=== PATIENT | female | born 1975 | race Caucasian/White ===

== ENCOUNTER 2019-01-28 14:38 | Inpatient (IN) | payer MEDICARE, MEDICAID ==
[2019-01-28] MEDS ORDERED: Sodium Chloride 0.9% 10 ML Syringe FLUSH PRN (15:53)
[2019-01-28] MEDS ORDERED: Iopamidol 612 MG/ML 150 ML Bottle IV SCH (16:00)
[2019-01-28] MEDS ORDERED: fentaNYL 100 MCG/2 ML SDV IVPUSH ONE (16:04)
[2019-01-28] MEDS ORDERED: LORazepam 2 MG/ML SDV IVPUSH ONE (16:05)
[2019-01-28] MEDS ORDERED: Ondansetron 4 MG/2 ML SDV IVPUSH ONE ×2 (16:09→18:40)
[2019-01-28] MEDS ORDERED: Sodium Chloride 0.9% 1,000 ML IV SCH (16:15)
--- NOTE | 2019-01-28 16:26 | EDM.PDOC ---
<Payal Cheung - Last Filed: 01/28/19 18:01> ED HPI GENERAL MEDICAL PROBLEM - General Chief Complaint: Abdominal Pain Stated Complaint: RT ABD PAIN Time Seen by Provider: 01/28/19 15:12 Source of Information: Reports: Patient History Limitations: Reports: No Limitations - History of Present Illness INITIAL COMMENTS - FREE TEXT/NARRATIVE: Siva Jiang is a 43 year old female who presents with concerns of nausea, vomiting and abdominal pain for 4 days. She states she has had diarrhea and constipation on and off for the last couple of weeks. She also reports bright red blood on the toilet tissue and in her stool for the past 2 months. She reports starting a liquid diet 9 days ago. She states eating now increases her pain. Her last bowel movement was 3 hours ago, which was diarrhea consistency. She notes at times her stool is yellow and other times it appears brown. Past surgical history is appendectomy and cholecystectomy. LMP was 3/2. Notes the pain waxes and wanes and it a stabbing pain. States pain is mainly located in right lower quadrant. Denies fevers, dysuria, and polyuria. Right Lower Abdominal Pain Score (Numeric/FACES): 8 - Related Data Allergies Allergy/AdvReac Type Severity Reaction Status Date / Time amoxicillin [From Augmentin] Allergy Other Verified 01/28/19 16:32 aripiprazole [From Abilify] Allergy Other Verified 01/28/19 16:32 bupropion [From Wellbutrin] Allergy Other Verified 01/28/19 16:32 clavulanic acid Allergy Other Verified 01/28/19 16:32 [From Augmentin] divalproex sodium Allergy Other Verified 01/28/19 16:32 [From Depakote] ketorolac [From Toradol] Allergy Other Verified 01/28/19 16:32 lamotrigine [From Lamictal] Allergy Other Verified 01/28/19 16:32 latex Allergy Other Verified 01/28/19 16:32 penicillin G Allergy Other Verified 01/28/19 16:32 phenytoin [From Dilantin] Allergy Other Verified 01/28/19 16:32 Home Meds: Home Meds Docusate Sodium [Colace] 50 mg PO DAILY 01/28/19 [History] Esomeprazole Magnesium [Nexium] 40 mg PO BID 01/28/19 [History] Gabapentin [Neurontin] 800 mg PO QID 01/28/19 [History] Olopatadine HCl 1 drop EYEBOTH DAILY 01/28/19 [History] PARoxetine HCl [Paroxetine HCl] 20 mg PO DAILY 01/28/19 [History] cloNIDine [Catapres] 0.2 mg PO ASDIRECTED 01/28/19 [History] diazePAM [Valium] 10 mg PO ASDIRECTED PRN 01/28/19 [History] traMADol HCl [Tramadol HCl] 50 mg PO ASDIRECTED PRN 01/28/19 [History] Past Medical History HEENT History: Reports: Impaired Vision Gastrointestinal History: Reports: Chronic Constipation, Chronic Diarrhea, GERD Genitourinary History: Reports: Renal Calculus 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 SPECIALIST History: Reports: Endometriosis, Musculoskeletal History: Reports: Back Pain, Chronic, Fibromyalgia Neurological History: Reports: Concussion, Head Trauma, Migraines, Seizure, Vertigo Psychiatric History: Reports: ADHD, Addiction, Anxiety, Bipolar, Depression, Panic Attack, Psych Hospitalization(s), PTSD, Suicide Attempt Endocrine/Metabolic History: Reports: Obesity/BMI 30+ Hematologic History: Reports: Iron Deficiency - Infectious Disease History Infectious Disease History: Reports: Shingles - Past Surgical History Head Surgeries/Procedures: Reports: None HEENT Surgical History: Reports: Adenoidectomy, Tonsillectomy GI Surgical History: Reports: Appendectomy, Cholecystectomy Female Surgical History: Reports: None Endocrine Surgical History: Reports: None Neurological Surgical History: Reports: None Musculoskeletal Surgical History: Reports: None Dermatological Surgical History: Reports: None Social & Family History - Tobacco Use Smoking Status *Q: Current Every Day Smoker Years of Tobacco use: 22 Packs/Tins Daily: 0.5 Used Tobacco, but Quit: No - Caffeine Use Caffeine Use: Reports: Coffee, Soda, Tea - Recreational Drug Use Recreational Drug Use: Yes Drug Use in Last 12 Months: Yes Recreational Drug Type: Reports: Marijuana/Hashish Recreational Drug Use Frequency: Monthly ED ROS GENERAL - Review of Systems Review Of Systems: ROS reveals no pertinent complaints other than HPI. ED EXAM, GI/ABD - Physical Exam Exam: See Below Exam Limited By: No Limitations General Appearance: Alert, No Apparent Distress, Anxious (Crying throughout exam , histrionic ), Moderate Distress Ears: Normal External Exam Nose: Normal Inspection, Normal Mucosa Throat/Mouth: Normal Inspection, Normal Lips, Normal Oropharynx Head: Atraumatic, Normocephalic Neck: Normal Inspection, Supple, Non-Tender Respiratory/Chest: No Respiratory Distress, Lungs Clear, Normal Breath Sounds Cardiovascular: Regular Rate, Rhythm GI/Abdominal Exam: Normal Bowel Sounds, Soft, No Mass, Tender (Severly tender located in epigastric region, RUQ and RLQ. Tenderness upon palpation of LLQ as well.) Extremities: Normal Inspection, Non-Tender, No Pedal Edema Neurological: Alert, Oriented Psychiatric: Anxious Skin Exam: Warm, Intact, Normal Color, No Rash Course - Vital Signs Last Recorded V/S: Last Vital Signs Temp 96.7 F 01/28/19 17:10 Pulse 71 01/28/19 18:24 Resp 18 01/28/19 15:02 BP 110/60 01/28/19 18:24 Pulse Ox 100 01/28/19 18:24 - Orders/Labs/Meds Orders: Active Orders 24 hr Category Date Time Status DRUG SCREEN, URINE [URCHEM] Stat Lab 01/28/19 18:23 Ordered Iopamidol [Isovue-300 (61%)] Med 01/28/19 16:00 Active 150 ml IV . DIRECTED Sodium Chloride 0.9% [Normal Saline] 1,000 ml Med 01/28/19 16:15 Active IV ASDIRECTED Sodium Chloride 0.9% [Saline Flush] Med 01/28/19 15:53 Active 10 ml FLUSH ONETIME PRN Medication Orders Sodium Chloride (Normal Saline) 1,000 mls @ 999 mls/hr IV ASDIRECTED SANGEETHA Last Admin: 01/28/19 17:11 Dose: 999 mls/hr Iopamidol (Isovue-300 (61%)) 150 ml IV . DIRECTED SANGEETHA Sodium Chloride (Saline Flush) 10 ml FLUSH ONETIME PRN PRN Reason: PER RADIOLOGY PROTOCOL Labs: Laboratory Tests 01/28/19 01/28/19 01/28/19 Range/Units 15:55 15:55 16:14 WBC 11.3 H (4.5-11.0) K/uL RBC 4.03 (3.30-5.50) M/uL Hgb 11.8 L (12.0-15.0) g/dL Hct 37.0 (36.0-48.0) % MCV 92 (80-98) fL MCH 29 (27-31) pg MCHC 32 (32-36) % Plt Count 262 (150-400) K/uL Neut % (Auto) 60 (36-66) % Lymph % (Auto) 30 (24-44) % Dade % (Auto) 7 H (2-6) % Eos % (Auto) 3 (2-4) % Baso % (Auto) 1 (0-1) % Sodium 139 L (140-148) mmol/L Potassium 4.1 (3.6-5.2) mmol/L Chloride 103 (100-108) mmol/L Carbon Dioxide 28 (21-32) mmol/L Anion Gap 12.1 (5.0-14.0) mmol/L BUN 10 (7-18) mg/dL Creatinine 1.0 (0.6-1.0) mg/dL Est Cr Clr Drug Dosing 65.95 mL/min Estimated GFR (MDRD) > 60 (>60) Glucose 94 (74-106) mg/dL Calcium 8.6 (8.5-10.1) mg/dL Total Bilirubin 0.2 (0.2-1.0) mg/dL AST 25 (15-37) U/L ALT 27 (12-78) U/L Alkaline Phosphatase 63 (46-116) U/L Total Protein 7.0 (6.4-8.2) g/dL Albumin 3.5 (3.4-5.0) g/dL Globulin 3.5 (2.3-3.5) g/dL Albumin/Globulin Ratio 1.0 L (1.2-2.2) Lipase 131 (73-393) U/L Urine Color Yellow Urine Appearance Clear Urine pH 6.0 (4.5-8.0) Ur Specific Friendship 1.005 L (1.008-1.030) Urine Protein Negative (NEGATIVE) mg/dL Urine Glucose (UA) Negative (NEGATIVE) mg/dL Urine Ketones Negative (NEGATIVE) mg/dL Urine Occult Blood Negative (NEGATIVE) Urine Nitrite Negative (NEGATIVE) Urine Bilirubin Negative (NEGATIVE) Urine Urobilinogen Normal (NORMAL) mg/dL Ur Leukocyte Esterase Negative (NEGATIVE) Urine RBC 0-5 (0-5) Urine WBC 0-5 (0-5) Ur Epithelial Cells Rare Amorphous Sediment Few Urine Bacteria Not seen Urine Mucus Not seen Urine HCG, Qual 01/28/19 Range/Units 16:14 WBC (4.5-11.0) K/uL RBC (3.30-5.50) M/uL Hgb (12.0-15.0) g/dL Hct (36.0-48.0) % MCV (80-98) fL MCH (27-31) pg MCHC (32-36) % Plt Count (150-400) K/uL Neut % (Auto) (36-66) % Lymph % (Auto) (24-44) % Dade % (Auto) (2-6) % Eos % (Auto) (2-4) % Baso % (Auto) (0-1) % Sodium (140-148) mmol/L Potassium (3.6-5.2) mmol/L Chloride (100-108) mmol/L Carbon Dioxide (21-32) mmol/L Anion Gap (5.0-14.0) mmol/L BUN (7-18) mg/dL Creatinine (0.6-1.0) mg/dL Est Cr Clr Drug Dosing mL/min Estimated GFR (MDRD) (>60) Glucose (74-106) mg/dL Calcium (8.5-10.1) mg/dL Total Bilirubin (0.2-1.0) mg/dL AST (15-37) U/L ALT (12-78) U/L Alkaline Phosphatase (46-116) U/L Total Protein (6.4-8.2) g/dL Albumin (3.4-5.0) g/dL Globulin (2.3-3.5) g/dL Albumin/Globulin Ratio (1.2-2.2) Lipase (73-393) U/L Urine Color Urine Appearance Urine pH (4.5-8.0) Ur Specific Friendship (1.008-1.030) Urine Protein (NEGATIVE) mg/dL Urine Glucose (UA) (NEGATIVE) mg/dL Urine Ketones (NEGATIVE) mg/dL Urine Occult Blood (NEGATIVE) Urine Nitrite (NEGATIVE) Urine Bilirubin (NEGATIVE) Urine Urobilinogen (NORMAL) mg/dL Ur Leukocyte Esterase (NEGATIVE) Urine RBC (0-5) Urine WBC (0-5) Ur Epithelial Cells Amorphous Sediment Urine Bacteria Urine Mucus Urine HCG, Qual Negative Meds: Medications Generic Name Dose Route Start Last Admin Trade Name Freq PRN Reason Stop Dose Admin Sodium Chloride 1,000 mls @ 999 mls/hr 01/28/19 16:15 01/28/19 17:11 Normal Saline IV 999 mls/hr ASDIRECTED SANGEETHA Administration Iopamidol 150 ml 01/28/19 16:00 Isovue-300 (61%) IV . DIRECTED SANGEETHA Sodium Chloride 10 ml 01/28/19 15:53 Saline Flush FLUSH ONETIME PRN PER RADIOLOGY PROTOCOL Discontinued Medications Generic Name Dose Route Start Last Admin Trade Name Marty PRN Reason Stop Dose Admin Fentanyl 50 mcg 01/28/19 16:04 01/28/19 17:13 Sublimaze IVPUSH 01/28/19 16:05 50 mcg ONETIME ONE Administration Sodium Chloride 85 mls @ 3 mls/sec 01/28/19 15:53 Normal Saline IV 01/28/19 15:54 ONETIME ONE Lorazepam 1 mg 01/28/19 16:05 01/28/19 17:17 Ativan IVPUSH 01/28/19 16:06 1 mg ONETIME ONE Administration Ondansetron HCl 4 mg 01/28/19 16:09 01/28/19 17:11 Zofran IVPUSH 01/28/19 16:10 4 mg ONETIME ONE Administration Departure - Departure Disposition: Refer to Observation Clinical Impression: Right upper quadrant abdominal pain - Discharge Information Referrals: PCP,None [Primary Care Provider] - Forms: ED Department Discharge - My Orders Last 24 Hours: My Active Orders 01/28/19 15:53 Sodium Chloride 0.9% [Saline Flush] 10 ml FLUSH ONETIME PRN 01/28/19 16:00 Iopamidol [Isovue-300 (61%)] 150 ml IV . DIRECTED 01/28/19 18:23 DRUG SCREEN, URINE [URCHEM] Stat - Assessment/Plan Last 24 Hours: My Active Orders 01/28/19 15:53 Sodium Chloride 0.9% [Saline Flush] 10 ml FLUSH ONETIME PRN 01/28/19 16:00 Iopamidol [Isovue-300 (61%)] 150 ml IV . DIRECTED 01/28/19 18:23 DRUG SCREEN, URINE [URCHEM] Stat <HuyrNicholas - Last Filed: 01/28/19 18:36> ED ROS GENERAL - Review of Systems GI/Abdominal: Reports: Bloody Stool (Has had bloody stool for 2 months) ED EXAM, GI/ABD - Physical Exam Text/Narrative:: Agree with below Departure - Departure Time of Disposition: 18:35 Condition: Fair - Assessment/Plan Plan: Assessment Acuity = acute Site and laterality = right upper quadrant pain complicated patient with known history cholecystectomy Etiology = unclear etiology Manifestations = nausea and vomiting Location of injury = Home Lab values = CBC CMP, lipase, urinalysis unremarkable, CT scan does show dilated intrahepatic ducts as well as a moderately dilated common bile duct at 12 mm stool guaiac was negative Plan Call discuss case hospitalist continuous improvement coach at 1830 kindly agreed to evaluate the patient emergency department for admission plan to do colonoscopy EGD an MRCP tomorrow Nicholas Peters MD was personally available for consultation in the ED. I have reviewed the chart and agree with the documentation as recorded by the [employer] Student, including the assessment, treatment plan and disposition. Nicholas Peters MD personally saw and examined the patient. I have reviewed and agree with the B[employer]ING [employer] Student's findings. This note was dictated using [employer] voice recognition software please call with any questions on syntax or grammar.
--- NOTE | 2019-01-28 17:32 | CRLCT ---
INDICATION: Generalized abdominal pain. COMPARISON: None available TECHNIQUE: CT examination of the abdomen and pelvis was performed with the uneventful intravenous administration of 150 cc of Isovue while 3 mm thick axial sections were obtained from the lung bases through the pubic symphysis. Oral contrast was not administered. Please note that all CT scans at this facility use dose modulation, iterative reconstruction, and/or weight-based dosing when appropriate to reduce radiation dose to as low as reasonably achievable. FINDINGS: In the abdomen, the liver has mild intrahepatic biliary ductal dilatation, associated with surgical clips from cholecystectomy and moderate dilatation of the common bile duct which measures up to 12 millimeters in caliber. No additional abnormality is seen in the liver. The spleen, pancreas, and adrenals are normal in appearance. The kidneys are normal in appearance. The gallbladder is normal in appearance. The abdominal aorta is normal in caliber with no sign of dilatation. There is no sign of retroperitoneal mass or adenopathy. The stomach, loops of small bowel, and colon in the abdomen are normal in appearance. In the pelvis, the appendix is nonvisualized, but there is no sign of an inflammatory process in the area of the appendix. The loops of small bowel and colon in the pelvis are normal in appearance. There is a peripherally enhancing cyst in the left ovary measuring 2.0 centimeters in diameter, probably a follicular cyst. Another cyst is seen in the left ovary more inferiorly without enhancement measuring 2.0 centimeters. The uterus and right adnexal region are normal in appearance. The urinary bladder is normal in appearance. There is no sign of pelvic or inguinal mass or adenopathy. There is mild dependent atelectasis in the posterior lung bases. The lung bases are otherwise clear. The osseous structures are normal in appearance for the patient`s age. IMPRESSION: Nothing seen to explain the patient`s generalized abdominal pain. CT of the abdomen shows changes of cholecystectomy with mild intrahepatic biliary ductal dilatation and moderate dilatation of the common bile duct to 12 millimeters, consistent with post cholecystectomy status. CT of the pelvis shows an enhancing 2.0 centimeter left ovarian cyst, probably a dominant follicular cyst. Another 2.0 centimeter cyst is seen in the left ovary without enhancement. Please note that all CT scans at this facility use dose modulation, iterative reconstruction, and/or weight-based dosing when appropriate to reduce radiation dose to as low as reasonably achievable. Dictated by Lawson Camacho MD @ Jan 28 2019 5:21PM Signed by Dr. Lawson Camacho @ Jan 28 2019 5:31PM
[2019-01-28] MEDS ORDERED: HYDROmorphone 1 MG/ML Syringe IVPUSH ONE (18:40)
--- NOTE | 2019-01-28 19:41 | PCM.HP ---
H&P History of Present Illness - General Date of Service: 01/28/19 Admit Problem/Dx: Admission Diagnosis/Problem Admission Diagnosis/Problem Abdominal pain Source of Information: Patient History Limitations: Reports: No Limitations - History of Present Illness Initial Comments - Free Text/Narative: - History of Present Illness Siva Jiang is a 43 year old female who presents with concerns of nausea, vomiting and abdominal pain for 4 days. She states she has had diarrhea and constipation on and off for the last couple of weeks. She also reports bright red blood on the toilet tissue and in her stool for the past 2 months. She reports has had these symptoms for 2 years, worse the past 4 days. She reports starting a liquid diet 9 days ago. She states eating now increases her pain. Her last bowel movement was 3 hours ago, which was diarrhea consistency. She notes at times her stool is yellow and other times it appears brown. Past surgical history is appendectomy and cholecystectomy. LMP was 3/2. Notes the pain waxes and wanes and it a stabbing pain. States pain is mainly located in right lower quadrant. Denies fevers, dysuria, and polyuria. Onset of Symptoms: Reports: Gradual Symptom Onset Date: 01/25/19 Duration of Symptoms: Reports: Constant, Getting Worse Location: Reports: Abdomen Quality: Reports: Same as Previous Episode (gallstones with lapchol age 20 yrs) Severity: Severe Improves with: Reports: None Worsens with: Reports: Eating Associated Symptoms: Reports: Nausea/Vomiting Right Lower Abdominal Pain Score (Numeric/FACES): 8 - Related Data Allergies/Adverse Reactions: Allergies Allergy/AdvReac Type Severity Reaction Status Date / Time amoxicillin [From Augmentin] Allergy Other Verified 01/28/19 16:32 aripiprazole [From Abilify] Allergy Other Verified 01/28/19 16:32 bupropion [From Wellbutrin] Allergy Other Verified 01/28/19 16:32 clavulanic acid Allergy Other Verified 01/28/19 16:32 [From Augmentin] divalproex sodium Allergy Other Verified 01/28/19 16:32 [From Depakote] ketorolac [From Toradol] Allergy Other Verified 01/28/19 16:32 lamotrigine [From Lamictal] Allergy Other Verified 01/28/19 16:32 latex Allergy Other Verified 01/28/19 16:32 penicillin G Allergy Other Verified 01/28/19 16:32 phenytoin [From Dilantin] Allergy Other Verified 01/28/19 16:32 Home Medications: Home Meds Docusate Sodium [Colace] 50 mg PO DAILY 01/28/19 [History] Esomeprazole Magnesium [Nexium] 40 mg PO BID 01/28/19 [History] Gabapentin [Neurontin] 800 mg PO QID 01/28/19 [History] Olopatadine HCl 1 drop EYEBOTH DAILY 01/28/19 [History] PARoxetine HCl [Paroxetine HCl] 20 mg PO DAILY 01/28/19 [History] cloNIDine [Catapres] 0.2 mg PO ASDIRECTED 01/28/19 [History] diazePAM [Valium] 10 mg PO ASDIRECTED PRN 01/28/19 [History] traMADol HCl [Tramadol HCl] 50 mg PO ASDIRECTED PRN 01/28/19 [History] Past Medical History HEENT History: Reports: Impaired Vision Gastrointestinal History: Reports: Chronic Constipation, Chronic Diarrhea, GERD Genitourinary History: Reports: Renal Calculus 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: Reports: Endometriosis, Musculoskeletal History: Reports: Back Pain, Chronic, Fibromyalgia Neurological History: Reports: Concussion, Head Trauma, Migraines, Seizure, Vertigo Psychiatric History: Reports: ADHD, Addiction, Anxiety, Bipolar, Depression, Panic Attack, Psych Hospitalization(s), PTSD, Suicide Attempt Endocrine/Metabolic History: Reports: Obesity/BMI 30+ Hematologic History: Reports: Iron Deficiency - Infectious Disease History Infectious Disease History: Reports: Shingles - Past Surgical History Head Surgeries/Procedures: Reports: None HEENT Surgical History: Reports: Adenoidectomy, Tonsillectomy GI Surgical History: Reports: Appendectomy, Cholecystectomy Female Surgical History: Reports: None Endocrine Surgical History: Reports: None Neurological Surgical History: Reports: None Musculoskeletal Surgical History: Reports: None Dermatological Surgical History: Reports: None Social & Family History - Tobacco Use Smoking Status *Q: Current Every Day Smoker Years of Tobacco use: 22 Packs/Tins Daily: 0.5 Used Tobacco, but Quit: No - Caffeine Use Caffeine Use: Reports: Coffee, Soda, Tea - Recreational Drug Use Recreational Drug Use: Yes Drug Use in Last 12 Months: Yes Recreational Drug Type: Reports: Marijuana/Hashish Recreational Drug Use Frequency: Monthly - Living Situation & Occupation Living situation: Reports: with Significant Other (lives in [place], [place]. with S.O.) H&P Review of Systems - Review of Systems: Review Of Systems: See Below General: Reports: Other (abdominal pain) HEENT: Reports: No Symptoms, Other (partial upper denture) Pulmonary: Reports: No Symptoms, Other (tobacco use) Cardiovascular: Reports: No Symptoms Gastrointestinal: Reports: Abdominal Pain (right upper quadrant), Black Stool ( intermittent x2 years), Bloody Stool (intermittent x 2 years), Nausea (x 4 days) , Vomiting (x 4 days) Genitourinary: Reports: No Symptoms Musculoskeletal: Reports: No Symptoms Skin: Reports: No Symptoms Psychiatric: Reports: No Symptoms Neurological: Reports: Pre-Existing Deficit, Seizure (last seizure 2 days ago) Hematologic/Lymphatic: Reports: No Symptoms Immunologic: Reports: No Symptoms Exam - Exam Exam: See Below - Vital Signs Vital Signs: Last Vital Signs Temp 35.9 C 01/28/19 17:10 Pulse 71 01/28/19 18:24 Resp 18 01/28/19 15:02 BP 110/60 01/28/19 18:24 Pulse Ox 100 01/28/19 18:24 Weight: 104.2 kg - Exam General: Alert, Oriented, Cooperative, Mild Distress (intermittent crying during exam related to abdominal pain and generalized not feeling well), Moderate Distress (mild to moderate distress) HEENT: PERRLA, Hearing Intact, Mucosa Moist & Union Level, Nares Patent, Normal Nasal Septum, Posterior Pharynx Clear, Conjunctiva Clear, EOMI, EACs Clear, TMs Clear Neck: Supple, Trachea Midline, 2 Lungs: Clear to Auscultation, Normal Respiratory Effort Cardiovascular: Regular Rate GI/Abdominal Exam: Normal Bowel Sounds, Guarding (right abdomen), Tender (right upper quadrant) (Female) Exam: Deferred Rectal (Female) Exam: Deferred, Heme - Stool Back Exam: Normal Inspection, Full Range of Motion Extremities: Normal Inspection Skin: Warm, Dry, Intact Neurological: Strength Equal Bilateral, Normal Speech, Normal Tone Neuro Extensive - Mental Status: Alert, Oriented x3, Normal Mood/Affect, Normal Cognition Psychiatric: Alert, Normal Affect, Normal Mood - Patient Data Lab Results Last 24 hrs: Laboratory Results - last 24 hr 01/28/19 01/28/19 01/28/19 Range/Units 15:55 15:55 16:14 WBC 11.3 H (4.5-11.0) K/uL RBC 4.03 (3.30-5.50) M/uL Hgb 11.8 L (12.0-15.0) g/dL Hct 37.0 (36.0-48.0) % MCV 92 (80-98) fL MCH 29 (27-31) pg MCHC 32 (32-36) % Plt Count 262 (150-400) K/uL Neut % (Auto) 60 (36-66) % Lymph % (Auto) 30 (24-44) % Allen % (Auto) 7 H (2-6) % Eos % (Auto) 3 (2-4) % Baso % (Auto) 1 (0-1) % Sodium 139 L (140-148) mmol/L Potassium 4.1 (3.6-5.2) mmol/L Chloride 103 (100-108) mmol/L Carbon Dioxide 28 (21-32) mmol/L Anion Gap 12.1 (5.0-14.0) mmol/L BUN 10 (7-18) mg/dL Creatinine 1.0 (0.6-1.0) mg/dL Est Cr Clr Drug Dosing 65.95 mL/min Estimated GFR (MDRD) > 60 (>60) Glucose 94 (74-106) mg/dL Calcium 8.6 (8.5-10.1) mg/dL Total Bilirubin 0.2 (0.2-1.0) mg/dL AST 25 (15-37) U/L ALT 27 (12-78) U/L Alkaline Phosphatase 63 (46-116) U/L Total Protein 7.0 (6.4-8.2) g/dL Albumin 3.5 (3.4-5.0) g/dL Globulin 3.5 (2.3-3.5) g/dL Albumin/Globulin Ratio 1.0 L (1.2-2.2) Lipase 131 (73-393) U/L Urine Color Yellow Urine Appearance Clear Urine pH 6.0 (4.5-8.0) Ur Specific [place] 1.005 L (1.008-1.030) Urine Protein Negative (NEGATIVE) mg/dL Urine Glucose (UA) Negative (NEGATIVE) mg/dL Urine Ketones Negative (NEGATIVE) mg/dL Urine Occult Blood Negative (NEGATIVE) Urine Nitrite Negative (NEGATIVE) Urine Bilirubin Negative (NEGATIVE) Urine Urobilinogen Normal (NORMAL) mg/dL Ur Leukocyte Esterase Negative (NEGATIVE) Urine RBC 0-5 (0-5) Urine WBC 0-5 (0-5) Ur Epithelial Cells Rare Amorphous Sediment Few Urine Bacteria Not seen Urine Mucus Not seen Urine HCG, Qual 01/28/19 Range/Units 16:14 WBC (4.5-11.0) K/uL RBC (3.30-5.50) M/uL Hgb (12.0-15.0) g/dL Hct (36.0-48.0) % MCV (80-98) fL MCH (27-31) pg MCHC (32-36) % Plt Count (150-400) K/uL Neut % (Auto) (36-66) % Lymph % (Auto) (24-44) % Allen % (Auto) (2-6) % Eos % (Auto) (2-4) % Baso % (Auto) (0-1) % Sodium (140-148) mmol/L Potassium (3.6-5.2) mmol/L Chloride (100-108) mmol/L Carbon Dioxide (21-32) mmol/L Anion Gap (5.0-14.0) mmol/L BUN (7-18) mg/dL Creatinine (0.6-1.0) mg/dL Est Cr Clr Drug Dosing mL/min Estimated GFR (MDRD) (>60) Glucose (74-106) mg/dL Calcium (8.5-10.1) mg/dL Total Bilirubin (0.2-1.0) mg/dL AST (15-37) U/L ALT (12-78) U/L Alkaline Phosphatase (46-116) U/L Total Protein (6.4-8.2) g/dL Albumin (3.4-5.0) g/dL Globulin (2.3-3.5) g/dL Albumin/Globulin Ratio (1.2-2.2) Lipase (73-393) U/L Urine Color Urine Appearance Urine pH (4.5-8.0) Ur Specific [place] (1.008-1.030) Urine Protein (NEGATIVE) mg/dL Urine Glucose (UA) (NEGATIVE) mg/dL Urine Ketones (NEGATIVE) mg/dL Urine Occult Blood (NEGATIVE) Urine Nitrite (NEGATIVE) Urine Bilirubin (NEGATIVE) Urine Urobilinogen (NORMAL) mg/dL Ur Leukocyte Esterase (NEGATIVE) Urine RBC (0-5) Urine WBC (0-5) Ur Epithelial Cells Amorphous Sediment Urine Bacteria Urine Mucus Urine HCG, Qual Negative Result Diagrams: 01/28/19 15:55 01/28/19 15:55 [facility] Results Last 24 hrs: Microbiology 01/28/19 15:43 Stool Occult Blood (HERON) - Final Stool / Feces NEGATIVE OCCULT BLOOD - Problem List (1) Right upper quadrant abdominal pain SNOMED Code(s): 590530681 ICD Code: R10.11 - RIGHT UPPER QUADRANT PAIN Status: Acute Priority: High Current Visit: Yes (2) Seizure SNOMED Code(s): 28332786 ICD Code: R56.9 - UNSPECIFIED CONVULSIONS Status: Acute Priority: High Current Visit: Yes (3) Tobacco abuse SNOMED Code(s): 039598601 ICD Code: Z72.0 - TOBACCO USE Status: Acute Priority: High Current Visit: Yes Problem List Initiated/Reviewed/Updated: Yes Orders Last 24hrs: Active Orders 24 hr Category Date Time Status Patient Status Manage Transfer [TRANSFER] Routine ADT 01/28/19 19:15 Ordered DRUG SCREEN, URINE [URCHEM] Stat Lab 01/28/19 18:23 Ordered Iopamidol [Isovue-300 (61%)] Med 01/28/19 16:00 Active 150 ml IV . DIRECTED Sodium Chloride 0.9% [Normal Saline] 1,000 ml Med 01/28/19 16:15 Active IV ASDIRECTED Sodium Chloride 0.9% [Saline Flush] Med 01/28/19 15:53 Active 10 ml FLUSH ONETIME PRN Resuscitation Status Routine Resus Stat 01/28/19 19:16 Ordered Medication Orders Sodium Chloride (Normal Saline) 1,000 mls @ 999 mls/hr IV ASDIRECTED SANGEETHA Last Admin: 01/28/19 17:11 Dose: 999 mls/hr Iopamidol (Isovue-300 (61%)) 150 ml IV . DIRECTED SANGEETHA Sodium Chloride (Saline Flush) 10 ml FLUSH ONETIME PRN PRN Reason: PER RADIOLOGY PROTOCOL Assessment/Plan Comment:: ASSESSMENT AND PLAN Abdominal Pain Reports a 2 year history of nausea, vomiting, bloody or black stools. The last 4 days has had intermittent abdominal pain with nausea and vomiting. ER work up: CT Abdomen-Pelvis shows dilated CBD at 12mm, elevated WBC 11.3, chemistry normal range, urine with micro clear, hcg negative, UDS pending. Consult to Surgery will admit to hospital for EGD in am. consulted with Dr. Gavin Surgeon wheelchair van operator first responder, Dr. Xiomy Macias to do procedure in am. Abdominal Pain, Ms. Jiang reports a 2 year history of abdominal pain triggered by tomato base foods and intermittent black and bloody stools. The last 4 days has had nausea, vomiting, right upper abdominal pain similar to when she had gallstones. Consult made to Surgery, will do EGD and Colonoscopy in am. 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 has not been to Neurology in years. Medication Gabapentin 800mg 4 times a day and Valium prn -Gabapentin 800mg 4 times a day Tobacco Use, smokes 5 to 7 cigarettes a day. -decline gum or patch Maintenance issues - - DVT prophylaxis - SCD - GI prophylaxis - IV Protonix 40mg bid - Nutrition - clear liquid diet, NPO after midnight - Armijo catheter - not indicated CODE STATUS - FULL Admission justification - This patient will be admitted for inpatient services and is medically appropriate meeting medical necessity for inpatient admission as outlined in my documentation. I reasonably expect the patient will require inpatient services that span a period time over 2 midnights. I reasonably expect this patient to be discharged or transferred within 96 hours [facility]. Disposition - anticipate discharge home after the hospital stay Primary care physician - Mike Max [place]. Hospitalists: Giuseppe Rodrigues M.D.
[2019-01-28] MEDS ORDERED: HYDROmorphone/Normal Saline 15 MG/30 ML PCA IV PRN (19:52)
[2019-01-28] MEDS ORDERED: Polyethylene Glycol 3350 Powder 238 GM Bot PO ONE (19:52)
[2019-01-28] MEDS ORDERED: Naloxone 0.4 MG/ML SDV IVPUSH PRN (19:52)
[2019-01-28] MEDS ORDERED: Docusate Sodium 100 MG Cap PO PRN (19:52)
[2019-01-28] MEDS ORDERED: Albuterol 0.083% 2.5 MG/3 ML Neb Soln NEB PRN (19:52)
[2019-01-28] MEDS: Sodium Chloride 0.9% 1,000 ML IV SCH (20:00)
[2019-01-28] MEDS: Pantoprazole 40 MG Vial IVPUSH SCH (20:37)
[2019-01-28] MEDS ORDERED: Gabapentin 100 MG Cap PO ONE (21:53)
[2019-01-28] MEDS ORDERED: Gabapentin 400 MG Cap PO SCH (22:00)
[2019-01-29] MEDS: Sodium Chloride 0.9% 1,000 ML IV SCH (04:07)
[2019-01-29] MEDS: Gabapentin 400 MG Cap PO SCH ×4 (05:32→22:23)
[2019-01-29] MEDS: Gabapentin 100 MG Cap PO SCH ×4 (05:33→22:24)
[2019-01-29] MEDS ORDERED: Midazolam 1 MG/ML 2 ML SDV ONE (08:00)
[2019-01-29] MEDS ORDERED: Propofol 200 MG/20 ML SDV ONE ×3 (08:00→11:18)
[2019-01-29] MEDS ORDERED: fentaNYL 100 MCG/2 ML SDV ONE (08:00)
[2019-01-29] MEDS: PARoxetine 20 MG Tab PO SCH (09:16)
[2019-01-29] MEDS: Pantoprazole 40 MG Vial IVPUSH SCH (09:19)
--- NOTE | 2019-01-29 09:26 | CONS ---
DATE OF SERVICE: 01/29/2019 REFERRING PHYSICIAN: CONSULTING PHYSICIAN: Sandra Lua PA-C ADMISSION DIAGNOSES: 1. Nausea and vomiting. 2. Abdominal pain. 3. Reported blood in stools. 4. Alcoholism. 5. Opiate-type dependence, in remission. 6. Seizures. 7. Cannabis dependence abuse. 8. Neuralgia and neuritis. 9. Bipolar I, depressed, severe. 10.History of drug overdose. 11.Generalized anxiety disorder. 12.Post-traumatic stress disorder. 13.Panic disorder without agoraphobia. 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 16.Cocaine abuse. HISTORY: Siva Jiang was admitted through the emergency room. She had presented with nausea and vomiting and abdominal pain for 4 days, intermittent diarrhea, and constipation, and she noted some bright red blood on her toilet tissue. She had these symptoms for 2 years, and over the past five days, increased. Pain is generalized with localizing in the right mid and lower quadrants. She denies any associated signs and symptoms. Stools have been loose, 1 to 4 per day. Color varies. Symptoms are increasing. REVIEW OF SYSTEMS: GENERAL: She denies any fever, chills, night sweats, or fatigue. NECK: Negative. HEART: No chest pain, shortness of breath, or fast or irregular heart beat. LUNGS: No cough. ABDOMEN: As above. GENITOURINARY: Negative for UTI signs and symptoms. EXTREMITIES: Negative. NEUROLOGICAL: Negative. PSYCHIATRIC: Anxious. Poor historian. Remainder of review of systems was negative for any pertinent positives and negatives. HOME MEDICATIONS: 1. Colace 50 mg p.o. daily. 2. Nexium 40 mg p.o. b.i.d. 3. Neurontin 800 mg p.o. q.i.d. 4. Olopatadine hydrochloride 1 drop daily. 5. Paroxetine HCl 20 mg p.o. daily. 6. Catapres 0.2 mg p.o. as directed. 7. Valium 10 mg p.o. as directed p.r.n. 8. Tramadol 50 mg p.o. as directed p.r.n. PAST MEDICAL HISTORY: 1. Head, Eyes, Ears, Nose, and Throat: Impaired vision. 2. Gastrointestinal: Chronic constipation, chronic diarrhea, and gastroesophageal reflux disease. 3. Genitourinary: Renal calculus. 4. Obstetrics/Gynecological: Endometriosis. 5. Musculoskeletal: Chronic back pain and fibromyalgia. 6. Neurological History: Head trauma resulting in concussion, migraine headaches, seizures, and vertigo. 7. Psychiatric History: ADHD, addiction, anxiety, bipolar, depression, several psychiatric hospitalizations, PTSD, and suicide attempt. 8. Hematologic: Iron deficiency. PAST SURGICAL HISTORY: 1. Adenoidectomy and tonsillectomy. 2. Appendectomy. 3. Cholecystectomy. SOCIAL HISTORY: Single and lives with her boyfriend. She smokes half a pack of cigarettes a day. Recreational drugs, she reports smoking marijuana monthly. Caffeine, drinks coffee and soda and tea daily. Occupation, unemployed. OBJECTIVE: GENERAL: Siva Jiang is a 43-year-old female. VITAL SIGNS: Temperature is 98, pulse is 175, respiratory rate is 16, and blood pressure is 106/76. HEENT: Negative. NECK: Supple. HEART: Regular rate and rhythm. PULMONARY: Lungs are clear. ABDOMEN: Generalized tenderness with increased tenderness in the right lower quadrant. EXTREMITIES: Without peripheral edema. Full range of motion. Fingertips with some frostbite injury several years ago. NEUROLOGICAL: Cranial nerves 2 through 12 are intact. SKIN: Without rash. PSYCHIATRIC: Mood and affect are appropriate. ASSESSMENT: 1. Right upper quadrant abdominal pain. 2. Seizure disorder. 3. Tobacco abuse. 4. Noted blood in stool. 5. Chronic alcoholism. 6. Opioid-type dependence. 7. Cannabis dependence. 8. Neuralgia and neuritis. 9. Bipolar I, depressed, severe. 10.Generalized anxiety. 11.Post-traumatic stress disorder. 12.Borderline personality. 13.Amphetamine abuse. 14.Cocaine abuse. PLAN: Scheduled for EGD and colonoscopy today with Dr. Tutu Macias. Orders are to be written postoperatively, pending findings of EGD and colonoscopy. Thank you for this consultation. Sandra Lua PA-C /[id number]
--- NOTE | 2019-01-29 10:42 | CRLMR ---
Final Report: INDICATION: Right abdominal pain. TECHNIQUE: An MRCP, including 2D, 3D and maximum intensity projection imaging, was performed. COMPARISON: Abdomen/pelvis CT performed yesterday. FINDINGS: Postop changes of cholecystectomy are again demonstrated. The common bile duct is smoothly marginated and measures up to 14 mm in diameter. No filling defect is evident. The intrahepatic ducts are normal in caliber and appear to branch and taper in a grossly normal fashion. The pancreatic duct is normal. The liver is normal in size, shape and signal. The spleen, pancreas, adrenal glands and kidneys are within normal limits. No bowel abnormality, lymphadenopathy or free fluid is demonstrated. IMPRESSION: Common duct enlargement to 14 mm in diameter with normal intrahepatic ducts and absent gallbladder. Common duct enlargement likely due to post-cholecystectomy reservoir effect. Correlate with liver function tests. Dictated by Sidney Cates MD @ Jan 29 2019 10:06AM (Electronic Signature) MTDD
[2019-01-29] MEDS: Metoclopramide 10 MG Tab PO SCH ×2 (13:22→15:45)
[2019-01-29] MEDS: LORazepam 2 MG/ML SDV IV PRN ×2 (13:22→22:24)
[2019-01-29] MEDS: Acetaminophen 325 MG Tab PO PRN ×2 (15:45→21:02)
[2019-01-29] MEDS: oxyCODONE 5 MG Tab PO PRN ×2 (15:46→21:02)
[2019-01-29] MEDS: Ondansetron 4 MG Tab.DIS PO PRN (15:55)
--- NOTE | 2019-01-29 16:56 | PCM.PN ---
- General Info Date of Service: 01/29/19 Subjective Update: There were no acute events overnight following admission. The patient has not had significant vomiting but reports ongoing abdominal pain. She completed a colonoscopy prep last night. EGD and colonoscopy today were essentially unremarkable other than possibly a small amount of bile retained in the stomach. MRCP was normal. She has not had fevers. Vital signs have all been stable. Functional Status: Reports: Pain Controlled, Tolerating Diet - Patient Data Vitals - Most Recent: Last Vital Signs Temp 36.8 C 01/29/19 15:36 Pulse 95 01/29/19 15:36 Resp 18 01/29/19 15:36 BP 126/79 01/29/19 15:36 Pulse Ox 96 01/29/19 15:36 Weight - Most Recent: 102.149 kg I&O - Last 24 Hours: Intake & Output 01/29/19 01/29/19 01/29/19 06:59 14:59 22:59 Intake Total 2871 Output Total 250 Balance 2621 Lab Results Last 24 Hours: Laboratory Results - last 24 hr 01/28/19 01/29/19 01/29/19 Range/Units 18:23 04:45 04:45 WBC 9.1 (4.5-11.0) K/uL RBC 3.79 (3.30-5.50) M/uL Hgb 11.0 L (12.0-15.0) g/dL Hct 35.4 L (36.0-48.0) % MCV 93 (80-98) fL MCH 29 (27-31) pg MCHC 31 L (32-36) % Plt Count 246 (150-400) K/uL Neut % (Auto) 60 (36-66) % Lymph % (Auto) 29 (24-44) % Craig % (Auto) 9 H (2-6) % Eos % (Auto) 3 (2-4) % Baso % (Auto) 0 (0-1) % Sodium 140 (140-148) mmol/L Potassium 3.9 (3.6-5.2) mmol/L Chloride 105 (100-108) mmol/L Carbon Dioxide 27 (21-32) mmol/L Anion Gap 8.4 (5.0-14.0) mmol/L BUN 7 (7-18) mg/dL Creatinine 0.9 (0.6-1.0) mg/dL Est Cr Clr Drug Dosing 76.23 mL/min Estimated GFR (MDRD) > 60 (>60) Glucose 96 (74-106) mg/dL Calcium 8.0 L (8.5-10.1) mg/dL Urine Opiates Screen Negative (NEGATIVE) Ur Oxycodone Screen Negative (NEGATIVE) Urine Methadone Screen Negative (NEGATIVE) Ur Propoxyphene Screen Negative (NEGATIVE) Ur Barbiturates Screen Negative (NEGATIVE) Ur Tricyclics Screen Negative (NEGATIVE) Ur Phencyclidine Scrn Negative (NEGATIVE) Ur Amphetamine Screen Negative (NEGATIVE) U Methamphetamines Scrn Negative (NEGATIVE) Urine MDMA Screen Negative (NEGATIVE) U Benzodiazepines Scrn Presumptive positive H (NEGATIVE) U Cocaine Metab Screen Negative (NEGATIVE) U Marijuana (THC) Screen Negative (NEGATIVE) Heron Results Last 24 Hours: Microbiology 01/29/19 11:54 Clostridioides difficile (PCR) - Final Stool / Feces - Stool, Liquid NEGATIVE CDIFF TOXIN 01/29/19 11:54 Stool for WBCs - Final Stool / Feces - Stool, Liquid NO WBC SEEN 01/28/19 15:43 Stool Occult Blood (HERON) - Final Stool / Feces NEGATIVE OCCULT BLOOD Med Orders - Current: Current Medications Acetaminophen (Tylenol) 650 mg PO Q4H PRN PRN Reason: Pain/Fever Last Admin: 01/29/19 15:45 Dose: 650 mg Albuterol (Proventil Neb Soln) 2.5 mg NEB Q4H PRN PRN Reason: Shortness Of Breath/wheezing Docusate Sodium (Colace) 100 mg PO BID PRN PRN Reason: Constipation Last Admin: 01/28/19 21:12 Dose: 100 mg Gabapentin (Neurontin) 800 mg PO QID REPLACED BY [facility] Last Admin: 01/29/19 15:45 Dose: 800 mg Gabapentin (Neurontin) 100 mg PO QID REPLACED BY [facility] Last Admin: 01/29/19 15:45 Dose: 100 mg Lorazepam (Ativan) 1 mg IV Q6H PRN PRN Reason: Nausea/Vomiting Last Admin: 01/29/19 13:22 Dose: 1 mg Metoclopramide HCl (Reglan) 5 mg PO TIDAC REPLACED BY [facility] Last Admin: 01/29/19 15:45 Dose: 5 mg Ondansetron HCl (Zofran Odt) 4 mg PO Q6H PRN PRN Reason: Nausea able to take PO Last Admin: 01/29/19 15:55 Dose: 4 mg Oxycodone HCl (Oxycodone) 5 mg PO Q4H PRN PRN Reason: Pain (moderate 4-6) Last Admin: 01/29/19 15:46 Dose: 5 mg Paroxetine HCl (Paxil) 20 mg PO DAILY REPLACED BY [facility] Last Admin: 01/29/19 09:16 Dose: 20 mg Discontinued Medications Fentanyl (Sublimaze) 50 mcg IVPUSH ONETIME ONE Stop: 01/28/19 16:05 Last Admin: 01/28/19 17:13 Dose: 50 mcg Fentanyl (Sublimaze) Confirm Administered Dose 100 mcg .ROUTE .STK-MED ONE Stop: 01/29/19 08:01 Gabapentin (Neurontin) 800 mg PO QID REPLACED BY [facility] Last Admin: 01/28/19 21:12 Dose: 800 mg Gabapentin (Neurontin) 100 mg PO ONETIME ONE Stop: 01/28/19 21:54 Last Admin: 01/28/19 22:26 Dose: 100 mg Hydromorphone HCl (Dilaudid) 1 mg IVPUSH ONETIME ONE Stop: 01/28/19 18:41 Last Admin: 01/28/19 19:02 Dose: 1 mg Hydromorphone HCl (Dilaudid [employer] Card Specialist 15 Mg In Ns 30 Ml) 0 mg IV ASDIRECTED PRN; Protocol PRN Reason: Pain Last Admin: 01/28/19 20:35 Dose: 15 mg Sodium Chloride (Normal Saline) 85 mls @ 3 mls/sec IV ONETIME ONE Stop: 01/28/19 15:54 Last Admin: 01/29/19 00:39 Dose: Not Given Sodium Chloride (Normal Saline) 1,000 mls @ 999 mls/hr IV ASDIRECTED REPLACED BY [facility] Last Admin: 01/28/19 17:11 Dose: 999 mls/hr Sodium Chloride (Normal Saline) 1,000 mls @ 125 mls/hr IV ASDIRECTED REPLACED BY [facility] Last Admin: 01/29/19 04:07 Dose: 125 mls/hr Iopamidol (Isovue-300 (61%)) 150 ml IV . DIRECTED REPLACED BY [facility] Lorazepam (Ativan) 1 mg IVPUSH ONETIME ONE Stop: 01/28/19 16:06 Last Admin: 01/28/19 17:17 Dose: 1 mg Midazolam HCl (Versed 1 Mg/Ml) Confirm Administered Dose 2 mg .ROUTE .STK-MED ONE Stop: 01/29/19 08:01 Naloxone HCl (Narcan) 0.4 mg IVPUSH Q2M PRN PRN Reason: Respiratory Distress Ondansetron HCl (Zofran) 4 mg IVPUSH ONETIME ONE Stop: 01/28/19 16:10 Last Admin: 01/28/19 17:11 Dose: 4 mg Ondansetron HCl (Zofran) 4 mg IVPUSH ONETIME ONE Stop: 01/28/19 18:41 Last Admin: 01/28/19 19:02 Dose: 4 mg Pantoprazole Sodium (Protonix Iv) 40 mg IVPUSH Q12H [facility] Last Admin: 01/29/19 09:19 Dose: 40 mg Polyethylene Glycol (Miralax) 238 gm PO ONETIME ONE Stop: 01/28/19 19:53 Last Admin: 01/28/19 21:11 Dose: 238 gm Propofol (Diprivan 20 Ml) Confirm Administered Dose 200 mg .ROUTE .STK-MED ONE Stop: 01/29/19 08:01 Propofol (Diprivan 20 Ml) Confirm Administered Dose 200 mg .ROUTE .STK-MED ONE Stop: 01/29/19 11:12 Propofol (Diprivan 20 Ml) Confirm Administered Dose 200 mg .ROUTE .STK-MED ONE Stop: 01/29/19 11:19 Sodium Chloride (Saline Flush) 10 ml FLUSH ONETIME PRN PRN Reason: PER RADIOLOGY PROTOCOL - Exam Quality Assessment: No: Supplemental Oxygen General: Alert, Oriented, Cooperative, Mild Distress Lungs: Normal Respiratory Effort GI/Abdominal Exam: Soft, No Distention Extremities: No Pedal Edema Psy/Mental Status: Alert, Depressed (tearful ) - Problem List Review Problem List Initiated/Reviewed/Updated: Yes - My Orders Last 24 Hours: My Active Orders 01/29/19 06:00 Gabapentin [Neurontin] 100 mg PO QID 01/29/19 11:04 BLAIRE TEST [RM] Routine 01/29/19 12:00 Metoclopramide [Reglan] 5 mg PO TIDAC 01/29/19 13:30 oxyCODONE 5 mg PO Q4H PRN Convert IV to Saline Lock [OM.PC] Routine 01/29/19 13:31 Acetaminophen [Tylenol] 650 mg PO Q4H PRN 01/29/19 13:34 Communication Order [RC] ROUTINE 01/29/19 Lunch Full Liquid Diet [DIET] - Plan Plan:: ASSESSMENT AND PLAN Right-sided abdominal pain - acute on chronic pain. Extensive workup so far has all been unremarkable. Small amount of bile noted in the stomach could suggest a mild motility issue. -Saline lock IV -Trial of metoclopramide 3 times daily with meals -Armijo liquids at lunchtime, advance as tolerated -Oxycodone Seizure disorder - reports last seizure two days ago. has not been to Neurology in years. No witnessed seizures during the hospital stay. -Gabapentin 800mg 4 times a day Tobacco Use, smokes 5 to 7 cigarettes a day. -decline gum or patch Maintenance issues - - DVT prophylaxis - SCD - GI prophylaxis - IV Protonix 40mg bid - Nutrition - full liquids - Armijo catheter - not indicated Disposition - anticipate discharge home after the hospital stay Primary care physician - Dr. Bhakta, BRADY Mckeon. Giuseppe Rodrigues M.D.
[2019-01-30] MEDS: Gabapentin 400 MG Cap PO SCH ×2 (05:06→09:26)
[2019-01-30] MEDS: Gabapentin 100 MG Cap PO SCH ×2 (05:06→09:26)
[2019-01-30] MEDS: oxyCODONE 5 MG Tab PO PRN ×2 (05:06→09:26)
[2019-01-30] MEDS: Acetaminophen 325 MG Tab PO PRN (05:07)
[2019-01-30] MEDS: Ondansetron 4 MG Tab.DIS PO PRN (07:28)
[2019-01-30] MEDS: Metoclopramide 10 MG Tab PO SCH ×2 (07:29→10:03)
--- NOTE | 2019-01-30 08:15 | PN ---
DATE OF SERVICE: 01/30/2019 SUBJECTIVE: Siva had an esophagogastroduodenoscopy and colonoscopy yesterday. She continues to report pain in her lower abdomen. REVIEW OF SYSTEMS: HEENT: Negative. NECK: Negative. HEART: No chest pain, shortness of breath. LUNGS: No cough. ABDOMEN: Reports pain in lower abdomen. No change from admission. EXTREMITIES: Negative. NEUROLOGIC: Negative for headache, dizziness. PSYCHIATRIC: Negative. Remainder of review of systems negative for any pertinent positives and negatives. OBJECTIVE: GENERAL: Siva Jiang is a 43-year-old female, very sleepy this morning. VITAL SIGNS: TPR 99.3, 93, 16, blood pressure 142/96. HEENT: Negative. NECK: Supple. HEART: Regular rate and rhythm. LUNGS: Clear. ABDOMEN: No change. EXTREMITIES: Negative. ASSESSMENT: 1. Abdominal pain, status post esophagogastroduodenoscopy and colonoscopy. 2. Seizure disorder. 3. Tobacco use. PLAN: No evidence for surgical diagnosis of abdominal pain, unknown etiology. Surgery Department will sign off. Evaluate if there has been any change. Thank you for this consultation. Sandra Lua PA-C /[phone]
[2019-01-30] MEDS: PARoxetine 20 MG Tab PO SCH (09:26)
--- NOTE | 2019-01-30 10:02 | PCM.DCSUM1 ---
Discharge Summary - Hospital Course Brief History: 43-year-old female with history of cholecystectomy, bipolar disorder and obesity who presented with worsening right-sided abdominal pain. Workup in the emergency room was unremarkable but she was admitted for additional expedited workup and management. Diagnosis: Stroke: No - Discharge Data Discharge Date: 01/30/19 Discharge Disposition: Home, Self-Care 01 Condition: Good - Discharge Diagnosis/Problem(s) (1) Right upper quadrant abdominal pain SNOMED Code(s): 589433973 ICD Code: R10.11 - RIGHT UPPER QUADRANT PAIN Status: Acute Priority: High Current Visit: Yes (2) Bipolar 1 disorder, depressed, severe SNOMED Code(s): 012692891206 ICD Code: F31.4 - BIPOLAR DISORD, CRNT EPSD DEPRESS, SEV, W/O PSYCH FEATURES Status: Chronic Current Visit: No (3) Seizure disorder SNOMED Code(s): 961640536 ICD Code: G40.909 - EPILEPSY, UNSP, NOT INTRACTABLE, WITHOUT STATUS EPILEPTICUS Status: Chronic Current Visit: Yes - Patient Summary/Data Consults: Consultations 01/28/19 19:52 Consult to Physician [CONS] Routine Consulting Provider: Tutu Macias Call Completed to Consulting Physician: No: contacted Dr. Gavin Reason for Consult: EGD and Colonscopy in am Person Notified: Dr. Gavin Date Notified: 01/28/19 Special Instructions: Hospital Course: Violeta presented to the emergency room with 4 days of worsening right-sided abdominal pain in the setting of 2 years of similar issues. Laboratory studies and a CT scan of the abdomen and pelvis in the emergency room were unremarkable. They did note dilation of the biliary tree status post cholecystectomy and consideration for MRCP and endoscopy was given. She was admitted to the hospital and provided fluids and symptom management overnight. The morning after admission she had an MRCP which was unremarkable. She also had an EGD and colonoscopy which were unremarkable. Random biopsies were taken throughout the colonoscopy. These results are pending at the time of discharge. The patient has not had any difficulty with nausea or vomiting overnight following the procedures. She continues to report some right-sided abdominal pain which is stable. with further discussion she reports that her abdominal pain has been fairly cyclical and does seem to timeout well with her menstrual period. She has more pain and nausea in the days leading up to and days following onset of menses. She will be keeping a food journal after hospital discharge to see if there is any food correlation. She'll be following up with her primary care provider in 1-2 weeks and will discuss potential hormonal options if there is a or definite correlation with menses and her abdominal pain. I believe she is stable and safe for hospital discharge. She had an extensive workup which was unremarkable. She does have a prescription for ondansetron. - Patient Instructions Diet: Usual Diet as Tolerated (soft, bland and boring foods) Activity: As Tolerated Showering/Bathing: May Shower Notify Provider of: Fever, Increased Pain, Nausea and/or Vomiting Other/Special Instructions: 1. You were in the hospital for management of abdominal pain. We completed an extensive workup including a CT scan of the abdomen and pelvis, a MRCP, an upper endoscopy as well as a colonoscopy. These tests in addition to all of your blood work have been unremarkable. The exact cause for your abdominal pain is not clear at this time. You may wish to discuss the association with your menstrual period with your primary care provider to see if able hormone altering control method may be of assistance. I did provide a prescription for ondansetron that you can use every 6 hours as needed for nausea. 2. Continue your home medications as previously prescribed. 3. Follow up with your primary care in 1-2 weeks. Please keep a food journal daily between now and your follow-up appointment. 4. Seek medical attention if you have fever greater than 101, severe abdominal pain or persistent vomiting. - Discharge Plan *PRESCRIPTION DRUG MONITORING PROGRAM REVIEWED*: Not Applicable *COPY OF PRESCRIPTION DRUG MONITORING REPORT IN PATIENT WILFRED: Not Applicable Prescriptions/Med Rec: Ondansetron [Zofran ODT] 4 mg PO Q6H PRN #20 tab.dis PRN Reason: Nausea able to take PO Home Medications: Home Meds Docusate Sodium [Colace] 50 mg PO DAILY 01/28/19 [History] Esomeprazole Magnesium [Nexium] 40 mg PO BID 01/28/19 [History] Gabapentin [Neurontin] 100 mg PO QID 01/28/19 [History] Gabapentin [Neurontin] 800 mg PO QID 01/28/19 [History] Olopatadine HCl 1 drop EYEBOTH DAILY 01/28/19 [History] PARoxetine HCl [Paroxetine HCl] 20 mg PO DAILY 01/28/19 [History] cloNIDine [Catapres] 0.2 mg PO ASDIRECTED 01/28/19 [History] diazePAM [Valium] 10 mg PO ASDIRECTED PRN 01/28/19 [History] traMADol HCl [Tramadol HCl] 50 mg PO ASDIRECTED PRN 01/28/19 [History] Ondansetron [Zofran ODT] 4 mg PO Q6H PRN #20 tab.dis 01/30/19 [Rx] Oxygen Therapy Mode: Room Air Patient Handouts: Abdominal Pain, Adult, [id number] Referrals: PCP,None [Primary Care Provider] - (f/u with your primary care in [place] to review your symptoms in 1-2 weeks. Bring your food journal. ) - Discharge Summary/Plan Comment DC Time >30 min.: No - Patient Data Vitals - Most Recent: Last Vital Signs Temp 37.4 C 01/30/19 07:21 Pulse 93 01/30/19 07:21 Resp 16 01/30/19 07:21 BP 142/96 H 01/30/19 07:21 Pulse Ox 95 01/30/19 07:21 Weight - Most Recent: 102.149 kg I&O - Last 24 hours: Intake & Output 01/29/19 01/30/19 01/30/19 22:59 06:59 14:59 Intake Total 780 Output Total 150 400 Balance 630 -400 RICK Results - Last 24 hrs: Microbiology 01/29/19 11:54 Stool Culture - Preliminary Stool / Feces Shiga Toxin I - Final NEGATIVE FOR SHIGA TOXIN 1 Shiga Toxin II - Final NEGATIVE FOR SHIGA TOXIN 2 01/29/19 11:54 Clostridioides difficile (PCR) - Final Stool / Feces - Stool, Liquid NEGATIVE CDIFF TOXIN 01/29/19 11:54 Stool for WBCs - Final Stool / Feces - Stool, Liquid NO WBC SEEN Med Orders - Current: Current Medications Acetaminophen (Tylenol) 650 mg PO Q4H PRN PRN Reason: Pain/Fever Last Admin: 01/30/19 05:07 Dose: 650 mg Albuterol (Proventil Neb Soln) 2.5 mg NEB Q4H PRN PRN Reason: Shortness Of Breath/wheezing Docusate Sodium (Colace) 100 mg PO BID PRN PRN Reason: Constipation Last Admin: 01/28/19 21:12 Dose: 100 mg Gabapentin (Neurontin) 800 mg PO QID [facility] Last Admin: 01/30/19 09:26 Dose: 800 mg Gabapentin (Neurontin) 100 mg PO QID [facility] Last Admin: 01/30/19 09:26 Dose: 100 mg Lorazepam (Ativan) 1 mg IV Q6H PRN PRN Reason: Nausea/Vomiting Last Admin: 01/29/19 22:24 Dose: 1 mg Metoclopramide HCl (Reglan) 5 mg PO TIDAC [facility] Last Admin: 01/30/19 07:29 Dose: 5 mg Ondansetron HCl (Zofran Odt) 4 mg PO Q6H PRN PRN Reason: Nausea able to take PO Last Admin: 01/30/19 07:28 Dose: 4 mg Oxycodone HCl (Oxycodone) 5 mg PO Q4H PRN PRN Reason: Pain (moderate 4-6) Last Admin: 01/30/19 09:26 Dose: 5 mg Paroxetine HCl (Paxil) 20 mg PO DAILY [facility] Last Admin: 01/30/19 09:26 Dose: 20 mg Discontinued Medications Fentanyl (Sublimaze) 50 mcg IVPUSH ONETIME ONE Stop: 01/28/19 16:05 Last Admin: 01/28/19 17:13 Dose: 50 mcg Fentanyl (Sublimaze) Confirm Administered Dose 100 mcg .ROUTE .STK-MED ONE Stop: 01/29/19 08:01 Gabapentin (Neurontin) 800 mg PO QID [facility] Last Admin: 01/28/19 21:12 Dose: 800 mg Gabapentin (Neurontin) 100 mg PO ONETIME ONE Stop: 01/28/19 21:54 Last Admin: 01/28/19 22:26 Dose: 100 mg Hydromorphone HCl (Dilaudid) 1 mg IVPUSH ONETIME ONE Stop: 01/28/19 18:41 Last Admin: 01/28/19 19:02 Dose: 1 mg Hydromorphone HCl (Dilaudid [employer] Operator 15 Mg In Ns 30 Ml) 0 mg IV ASDIRECTED PRN; Protocol PRN Reason: Pain Last Admin: 01/28/19 20:35 Dose: 15 mg Sodium Chloride (Normal Saline) 85 mls @ 3 mls/sec IV ONETIME ONE Stop: 01/28/19 15:54 Last Admin: 01/29/19 00:39 Dose: Not Given Sodium Chloride (Normal Saline) 1,000 mls @ 999 mls/hr IV ASDIRECTED [facility] Last Admin: 01/28/19 17:11 Dose: 999 mls/hr Sodium Chloride (Normal Saline) 1,000 mls @ 125 mls/hr IV ASDIRECTED [facility] Last Admin: 01/29/19 04:07 Dose: 125 mls/hr Iopamidol (Isovue-300 (61%)) 150 ml IV . DIRECTED [facility] Lorazepam (Ativan) 1 mg IVPUSH ONETIME ONE Stop: 01/28/19 16:06 Last Admin: 01/28/19 17:17 Dose: 1 mg Midazolam HCl (Versed 1 Mg/Ml) Confirm Administered Dose 2 mg .ROUTE .STK-MED ONE Stop: 01/29/19 08:01 Naloxone HCl (Narcan) 0.4 mg IVPUSH Q2M PRN PRN Reason: Respiratory Distress Ondansetron HCl (Zofran) 4 mg IVPUSH ONETIME ONE Stop: 01/28/19 16:10 Last Admin: 01/28/19 17:11 Dose: 4 mg Ondansetron HCl (Zofran) 4 mg IVPUSH ONETIME ONE Stop: 01/28/19 18:41 Last Admin: 01/28/19 19:02 Dose: 4 mg Pantoprazole Sodium (Protonix Iv) 40 mg IVPUSH Q12H [facility] Last Admin: 01/29/19 09:19 Dose: 40 mg Polyethylene Glycol (Miralax) 238 gm PO ONETIME ONE Stop: 01/28/19 19:53 Last Admin: 01/28/19 21:11 Dose: 238 gm Propofol (Diprivan 20 Ml) Confirm Administered Dose 200 mg .ROUTE .STK-MED ONE Stop: 01/29/19 08:01 Propofol (Diprivan 20 Ml) Confirm Administered Dose 200 mg .ROUTE .STK-MED ONE Stop: 01/29/19 11:12 Propofol (Diprivan 20 Ml) Confirm Administered Dose 200 mg .ROUTE .STK-MED ONE Stop: 01/29/19 11:19 Sodium Chloride (Saline Flush) 10 ml FLUSH ONETIME PRN PRN Reason: PER RADIOLOGY PROTOCOL - Exam Quality Assessment: Denies: Supplemental Oxygen General: Reports: Alert, Oriented, Cooperative, No Acute Distress Lungs: Reports: Normal Respiratory Effort GI/Abdominal Exam: Soft, No Distention Psy/Mental Status: Reports: Alert, Normal Affect
--- NOTE | 2019-01-31 20:13 | OR ---
DATE OF PROCEDURE: 01/29/2019 PREOPERATIVE DIAGNOSIS: Abdominal pain. POSTOPERATIVE DIAGNOSES: Abdominal pain associated with: 1. Small hiatal hernia, but otherwise normal upper gastrointestinal endoscopic examination except for retained gastric bile (60 mL). 2. Colon showing possible very mild colitis in sigmoid colon. OPERATIVE PROCEDURES: 1. Esophagogastroduodenoscopy with antral biopsies for CLOtest. 2. Flexible colonoscopy with: a. Collection of stool for microbiologic workup. b. Random colorectal biopsies to rule out microscopic colitis (00120). ANESTHESIA: IV sedation. INDICATIONS FOR PROCEDURE: This is a 43-year-old presenting with abdominal pain. The pain is more or less centrally located and somewhat in the lower abdomen. She also reports some episodes of rectal bleeding. The plan is to proceed with an upper and lower endoscopy with biopsies and/or polypectomy as indicated. The potential risks including bleeding and perforation were discussed, and the patient wishes to proceed. DETAILS OF PROCEDURE: The patient was taken to the operating room and placed in a left lateral decubitus position. IV sedation was administered, after which the upper GI endoscope was passed orally through the length of the esophagus and into the stomach with retroflexion view of the fundus and thereafter through the pyloric channel and into the proximal duodenum. Findings included normal hypopharynx, larynx, upper esophageal sphincter, and esophageal body. At the EG junction, there was a small hiatal hernia, but without any upward extension of the gastroesophageal junction mucosal line, and no gross inflammation in the area of the distal esophagus or esophagogastric junction. Within the stomach, it was remarkable in the way of retained bile, 60 mL of bilious fluid was then evacuated. Apart from that, there was no significant gastritis or duodenitis noted and following this, biopsies were obtained from the antrum and sent for CLOtest to establish the patient's H. pylori status. No blood or bleeding was seen within the upper GI endoscopic exam. The scope was then withdrawn and the procedure concluded. Attention was then taken to the colonoscopy. The initial digital rectal exam that was performed was unremarkable. The colonoscope was then inserted into the rectum. Retroflexion revealed hemorrhoidal columns and did not have any significant excoriation and no blood or bleeding more likely at the sites seen in hemorrhoidal columns. The scope was eventually passed to the cecum. The prep was fairly good. There was some liquid stool present. This was evacuated and sent for microbiologic workup. In the sigmoid colon, there was an area that was very minimally reddened. This may have simply been from the prep or the passage of the scope through that area. Random colorectal biopsies were obtained through the length of the colon and rectum and sent for histologic evaluation to rule out microscopic colitis. Minimal bleeding from the biopsy site was seen and the procedure then concluded. The patient was taken to the recovery room in satisfactory condition. Situation was discussed with Dr. Giuseppe Rodrigues, who is the patient's hospitalist and he will start the patient on Reglan to see if augmenting the gastric emptying might be helpful with regard to the retained gastric bile. Tutu Macias MD /[id number]
== END 2019-01-30 11:00 | disposition home or self-care (01) | DRG 392 ==
LOC: JP.ED 14:38 → JP.MS 19:15
PROVIDERS: ADMIT Internal Medicine; ATTEND Internal Medicine
PROC: 0DBE8ZX Excision of Large Intestine, Via Natural or Artificial Opening Endoscopic, Diagnostic (ICD-10-PCS; principal; 2019-01-29)
DX: R10.31 Right lower quadrant pain (principal); R19.7 Diarrhea, unspecified; R11.2 Nausea with vomiting, unspecified; R56.9 Unspecified convulsions; R42 Dizziness and giddiness; K52.9 Noninfective gastroenteritis and colitis, unspecified; K92.1 Melena; F31.4 Bipolar disorder, current episode depressed, severe, without psychotic features; K44.9 Diaphragmatic hernia without obstruction or gangrene; K30 Functional dyspepsia; K59.09 Other constipation; K21.9 Gastro-esophageal reflux disease without esophagitis; M54.9 Dorsalgia, unspecified; G89.29 Other chronic pain; F41.9 Anxiety disorder, unspecified; M79.7 Fibromyalgia; G43.909 Migraine, unspecified, not intractable, without status migrainosus; F90.9 Attention-deficit hyperactivity disorder, unspecified type; E61.1 Iron deficiency; F31.9 Bipolar disorder, unspecified; F43.10 Post-traumatic stress disorder, unspecified; E66.9 Obesity, unspecified; E66.1 Drug-induced obesity; F17.210 Nicotine dependence, cigarettes, uncomplicated; F10.20 Alcohol dependence, uncomplicated; G40.909 Epilepsy, unspecified, not intractable, without status epilepticus; F12.20 Cannabis dependence, uncomplicated; M79.2 Neuralgia and neuritis, unspecified; F41.1 Generalized anxiety disorder; F41.0 Panic disorder [episodic paroxysmal anxiety]; F60.3 Borderline personality disorder; F15.10 Other stimulant abuse, uncomplicated; F14.10 Cocaine abuse, uncomplicated; H54.7 Unspecified visual loss; Z90.49 Acquired absence of other specified parts of digestive tract; Z88.1 Allergy status to other antibiotic agents; Z88.8 Allergy status to other drugs, medicaments and biological substances; Z87.442 Personal history of urinary calculi; Z88.0 Allergy status to penicillin; Z91.040 Latex allergy status; Z79.899 Other long term (current) drug therapy; Z68.38 Body mass index [BMI] 38.0-38.9, adult; K64.9 Unspecified hemorrhoids
CPT/HCPCS: 36415; 74177; 80053; 80305; 81001; 81025; 82272; 83690; 85025; 96361; 96374; 96375; 96376; 99285; J1170; J2060; J2405 ×2; J3010; J7030; 74181; 80048; 87046; 87081; 87177; 87209; 87493; 87899; 88305; 89055; 94762; A9270-GY; C9113; J2250; J2704